=== PATIENT | male | born 1995 | race Caucasian/White ===

== ENCOUNTER 2017-08-12 06:05 | Emergency (ER) | payer OTHER ==
[~2017-08-12] VITALS: Ht 180.3 cm; Wt 53.4 kg
[2017-08-12 11:51] VITALS: BP 135/76
== END 2017-08-12 11:45 | disposition home or self-care (01) ==
LOC: EME 06:05
DX: S61.216A Laceration without foreign body of right little finger without damage to nail, initial encounter (principal); W45.8XXA Other foreign body or object entering through skin, initial encounter; W22.8XXA Striking against or struck by other objects, initial encounter; Y99.0 Civilian activity done for income or pay; Z23 Encounter for immunization
CPT/HCPCS: 73140